=== PATIENT | male | born 1995 | race Caucasian/White ===

== ENCOUNTER 2019-09-15 21:41 | Observation (INO) | payer OTHER, SELFPAY ==
[2019-09-15 21:41] VITALS: BP 145/75; PULSE 58; RESP 18; TEMP 36.6; O2SAT 98; BMI 26.6
--- NOTE | 2019-09-15 22:18 | CT_ITS ---
We are attempting to reach an attending provider to discuss findings. An addendum with communication details will be sent when the communication is complete. STUDY: CT ABDOMEN AND PELVIS WITH CONTRAST REASON FOR EXAM: Male, 23 years old. RLQ PAIN/EMESIS RADIATION DOSAGE (If Supplied By Facility): CTDIvol = ( 17.85 ) mGy, DLP = ( 1007.00 ) mGycm TECHNIQUE: Transaxial images were obtained from the dome of the diaphragm to the symphysis pubis without oral contrast. Oral and amp; IV Gastrografin and amp; 100mL Isovue-370 was administered. Sagittal and coronal images were reconstructed. Individualized dose optimization techniques were used for this CT. COMPARISON: None. FINDINGS: The visualized lung bases are unremarkable. The visualized portions of the heart are within normal limits. Normal liver. Normal gallbladder and extrahepatic biliary system. Normal spleen. Normal pancreas. Normal bilateral adrenal glands. Normal right kidney. Normal left kidney. Normal visualized stomach. Normal small intestine. Normal colon. There is a tubular, thick-walled appendix (>7mm), consistent with acute appendicitis. Normal abdominal aorta. Normal inferior vena cava. Normal retroperitoneum. Normal urinary bladder. Normal abdominal wall. Normal osseous structures. CT/Abdomen/Pelvis WITH Contrast IMPRESSION: There is a tubular, thick-walled appendix (>7mm), consistent with acute appendicitis. Electronically Signed: Natasha Sharma, at 0:11 EDT Tel , Service support ,
[2019-09-15] MEDS: Ondansetron 4 MG/2 ML Vial IV (22:25)
[2019-09-15 22:26] LABS: Absolute Lymphocyte Count 1.82 X10^3/uL (0.83-4.51); Absolute Neutrophil Count 10.6 X10^3/uL (2.0-7.7); Basophil# 0.06 X10^3/uL; Basophil% 0.4 % (0-1); Eosinophil# 0.47 X10^3/uL; Eosinophils% 3.4 % (0-5); Hematocrit 40.7 % (40-54); Hemoglobin 13.4 g/dL (13.0-16.5); Lymphocyte # 1.82 X10^3/ul (4.0); Lymphocyte % 13.2 % (19-41); Mean Corp Hgb Conc 32.9 g/dL (32-36); Mean Corpuscular Hgb 29.2 pg (27.0-32.0); Mean Corpuscular Volume 88.7 fL (80-94); Mean Platelet Vol. 9.5 fl (6.2-12.0); Monocyte# 0.89 X10^3/uL; Monocyte% 6.4 % (0-10); NRBC Flagged by Analyzer 0 % (0-5); Neutrophil # 10.56 X10^3/uL (2.7-7.7); Neutrophil % 76.3 % (47-70); Platelet Count 193 K/mm3 (150-450); RBC Distribution Width CV 12.2 % (11.6-14.6); RBC Distribution Width SD 39.5 fl (35.1-43.9); Red Blood Count 4.59 M/mm3 (4.6-6.2); White Blood Count 13.8 K/mm3 (4.4-11.0)
[2019-09-15] MEDS: 0.9% Normal Saline 1,000 ML 1000 ML IV (22:26)
[2019-09-15] MEDS: Morphine 4 MG/ML Syringe IV (22:26)
[2019-09-15 22:39] LABS: ALB/GLOB Ratio 1.2 RATIO (0.9-2.4); AST(SGOT) 27 U/L (15-37); Alanine Aminotransfer ALT/SGPT 27 U/L (16-61); Albumin, Serum 3.6 g/dL (3.2-5.0); Alkaline Phosphatase 88 U/L (45-117); Anion Gap 5 (5-15); BUN 19 mg/dL (7-18); BUN/Creat Ratio 18.8 RATIO (10-20); Calcium,Total 8.8 mg/dL (8.5-10.1); Chloride 107 mmol/L (98-107); Creatinine, Serum 1.01 mg/dL (0.70-1.30); EST Glomerular Filtration Rate 97 mL/min (>60); Est Glom Filt Rate - Afr Amer 117 mL/min (>60); Estimated Creatinine Clearance 121.15 ml/min; Glucose 100 mg/dL (74-106); Lipase 71 U/L (73-393); Potassium 3.8 mmol/L (3.5-5.1); Protein, Total 6.6 g/dL (6.4-8.2); Sodium Level 140 mmol/L (136-145)
[2019-09-15 23:06] LABS: Bacteria 0 SEEN /hpf (None Seen); Mucous, Urine 0 SEEN /hpf (<or=2+); Red Blood Cells-Urine 0 SEEN /hpf (0-5); White Blood Cells 0 SEEN /hpf (0-5)
[2019-09-15 23:07] LABS: Color, Urine Yellow (Yellow); Glucose, Dipstick Normal (Normal); Ketone-Dipstick Negative (Negative); Leukocyte Esterase-Dipstick Negative /ul (Negative); Nitrite-Dipstick Negative (Negative); Occult Blood-Urine Negative /ul (Negative); Protein-Dipstick Negative (Negative); Urine Bilirubin Dipstick Negative (Negative); Urine Clarity Clear (Clear); Urine Urobilinogen Normal (Normal)
[2019-09-15 23:14] LABS: Squamous Epithelial Cells - UA 0-5 SEEN /hpf (0-5)
--- NOTE | 2019-09-15 23:15 | ED.DCSUM_ITS ---
- ER Visit Summary Date of Service: 09/15/19 Chief Complaint: Abdominal pain History of Present Illness: The patient is a 23 M with no primary care physician. He reports that he has right lower abdominal pain that began abruptly this evening at 6 PM shortly after eating [employer]. Describes it as a sharp, cramping pain is 910 worsening to 10 currently. Is worsened by movement or touching it. Is relieved by remaining still. He is been nauseated and vomited once. No blood in his emesis. Last bowel was today. No mild hematochezia. No dysuria, frequency, or hematuria. He denies any flank pain. Patient is never had anything like this before. He denies any history of fatty or spicy food intolerance. He denies fever or chills. He reports that he is feeling well today prior to this. Physical Examination: Vitals: Stable. Afebrile. General: Well-nourished and well-developed. Head: Normocephalic atraumatic. Neck: Supple, no lymphadenopathy. No JVD. Nontender. Cardiovascular: Regular rate and rhythm. No murmurs. Respiratory: No respiratory distress. Clear to auscultation bilaterally. Abdominal: Soft, moderate tenderness palpation the right lower quadrant, nondistended, normal bowel sounds. No guarding, rebound, or peritoneal signs. Back: Nontender. Extremities: Nontender, no edema. Skin: Normal color, no rash. Neurologic: Alert and oriented ?3. Cranial nerves II through XII are intact. Normal strength and sensation. Psych: Normal affect. Test Results: CBC shows a white count of 13.8 with 76 segment neutrophils and 13 lymphocytes. Chem-7 shows a BUN of 19. LFTs are normal. Lipase is 71. Urinalysis is negative. CT is pending. Emergency Department Course and Treatment: Patient was given a dose of morphine and Zofran IV. He is resting comfortably. Treatment Plan: Patient will be turned over to the oncoming physician for follow-up on the CT. Disposition: Pending Impression: 1. Abdominal pain, right lower quadrant. This note was generated with [employer] dictation software. It may contain incorrect words, spelling, and punctuation that were not noted in review of the chart prior to signing ED Disposition - Plan for ED Patient: Referrals: Mu Elliott MD [Primary Care Provider] -
[2019-09-15 23:46] VITALS: BP 132/72; PULSE 60; RESP 16; O2SAT 99
--- NOTE | 2019-09-15 23:55 | ED.DEP ---
ED Disposition - Plan for ED Patient: Disposition: Home or Assisted Living Instructions: ED Unknown Causes of Abdominal Pain Male Referrals: Mu Elliott MD [Primary Care Provider] - 3-5 Days if not improving
[2019-09-16] VITALS (10 sets, daily range): BP systolic 115–149; BP diastolic 58–81; PULSE 52–101; RESP 6–18; TEMP 36.8–37.6; O2SAT 0–99; BMI 27.2
--- NOTE | 2019-09-16 | APP_PTH ---
PATIENT: JIMMIE CAMARENA LOC: [facility] U#:[id number] AGE/SX: 23/M ROOM: [facility] RE09/16/[address]: Dr. Ada Trejo MD : 1995 BED: 1 DIS: 09/16/2019 SPEC #: [id number] RECD: 09/16/19 12:05 STATUS: KELLY REQ #: [id number] HANNY: 09/16/19 00:[address]: Ada Trejo DEPT: SURGICAL PATHOLOGY RECD BY: Bhavik Gardner ENTERED: 09/16/19 12:05 SP TYPE: APPENDIX OTHR DR: Dr. Mu Elliott MD Tissues: Appendix, NOS Procedures: Surgery Specimen Level III HEADER OPERATION: Laparoscopic appendectomy PRE-OP DIAGNOSIS: Appendicitis TISSUE SUBMITTED: Appendix MICROSCOPIC DIAGNOSIS Appendix, appendectomy: Acute necrotizing appendicitis. Acute serositis. AM:alexandra 09/17/19 MICROSCOPIC DESCRIPTION Slides are reviewed. GROSS DESCRIPTION Received is one container labeled with the patient's name and designated appendix. The specimen consists of an appendix measuring 12 cm in length and 0.8 cm in average diameter. The appendix is disrupted in its mid portion. The serosa is congested. No obvious perforation is identified. The lumen is filled with fecal material. No fecalith is identified. Theatre Director sections are submitted in one cassette. / AM:alexandra 09/16/19 TC:2 CPT: 08105
[2019-09-16] MEDS: morphine 8 MG/ML Syringe 6 MG IV (00:23)
[2019-09-16] MEDS: Lactated Ringers 1,000 ML 100 ML IV ×2 (02:00→07:00)
[2019-09-16] MEDS: Morphine 4 MG/ML Syringe IV ×2 (04:33→06:34)
--- NOTE | 2019-09-16 05:55 | PCM.HP.BLA ---
History and Physical Date of Admission: 09/16/19 Chief Complaint: abdominal pain History of Present Illness: 23 y/o otherwise healthy WM presents with sudden onset of right lower quadrant abdominal pain. This began at around 6 pm last evening. Describes pain as sharp and with crampy abdominal pain that was 9 out of 10 on a scale of 1-10 with 10 being the worst pain. He states that it is worsened by movement and somewhat tolerable if patient lies still. Also has nausea and had episode of emesis. He presented to [facility] ED. He was found to have an elevated WBC of 13.8K with left shift of differential. CT scan - There is a tubular, thick-walled appendix (>7mm), consistent with acute appendicitis. Patient admitted to [facility] in anticipation of surgery for appendicitis. Past Medical History: denies major medical illnesses Past Surgical History: adenoidectomy Medications: viibryd zyrtec Allergies: sulfa drugs Social history: TOB use denies ETOH occasional Occasional marijuana use Review of Systems: General - denies fevers Cardiovascular denies chest pain, denies history of heart attack, denies heart problems Pulmonary denies shortness of breath, denies coughing up blood Gastrointestinal as per HPI, denies blood in stools Neurological denies numbness/weakness of extremities, denies seizures, denies history of stroke Genitourinary denies burning with urination, denies blood in urine Hematological denies spontaneous/prolonged bleeding Skin denies open non healing wounds Musculoskeletal denies history of fractures Endocrine denies diabetes or thyroid problems Psychological denies hallucinations Physical examination: Vital signs Temp 98.2F HR 55 RR 16 BP 140/67 General WD/WN WM in no apparent distress, alert and oriented, not septic appearing HEENT Normocephalic. EOM intact with sclera clear and no icterus noted. Neck is supple with no jugular venous distention noted. Trachea is midline. Lungs no labored breathing noted, such as retractions. no adventitial lungs sounds. No cough heard. Heart regular rate Abdomen soft but tender in right lower quadrant with rebound, hypoactive bowel sounds. Extremities no calf tenderness noted. No pitting edema noted. Genitourinary/Rectal deferred Skin normal skin integrity. Neurological non focal. Psychological normal affect, patient is calm and appropriate Impression: right lower quadrant abdominal pain leukocytosis appendicitis by CT scan Discussion/Plan: I have discussed the above with the patient. I have offered the patient the procedure of laparoscopic appendectomy. I have explained the procedure to the patient. I have counseled the patient as to the risks of the procedure, including but not limited to: infection, bleeding, injury to any blood vessels/nerves, scar tissue, injury to any intrabdominal organs, injury to kidney/ureters, injury to bowel/bladder, intraabdominal abscess/bleeding, hernias at incisional sites, wound infections, possible open procedure, complications of anesthesia, postoperative pneumonia/cardiac problems/blood clots etc. the patient understands. I have also discussed with patient that he has increased risk of erick COVID or having complications of COVID due to surgical physiological stress, etc He understands all of above and is willing to proceed with surgery. I have answered all questions to the patient?s satisfaction and the patient has no further questions.
--- NOTE | 2019-09-16 06:40 | PCM.DC.APPY ---
Discharge Diet: No Restrictions - avoid carbonated beverages for a couple of days, drink plenty of fluids Discharge Activity: Return to Normal Activity, May not drive while taking narcotic pain medications. Lifting Restrictions: no lifting greater than 20 pounds for two weeks Additional Activity Instructions:: walking is encouraged Call your doctor if your incision/area has: Continuous Slow Oozing, Foul Smelling Discharge Call your doctor if you observe: Fever of 101 or Higher Additional Dressing/Incision Instructions:: Leave dressings in place. May get wet in shower. Do not soak - no tub baths/swimming Instructions: ED Unknown Causes of Abdominal Pain Male Medications to take at Discharge Cetirizine HCl [Zyrtec] 10 mg PO DAILY 09/15/19 Vilazodone Hydrochloride [Viibryd] 20 mg pe PO DAILY 09/15/19 Hydrocodone Bitart/Apap 5-325 [Vicodin 5/325] 1 tablet PO Q8H PRN PRN 4 Days #12 tablet 09/16/19 Allergies/Adverse Reactions: Allergies sulfamethoxazole [From Septra] Allergy (Verified 09/15/19 21:45) Nausea trimethoprim [From Septra] Allergy (Verified 09/15/19 21:45) Nausea The following prescriptions were given: Hydrocodone Bitart/Apap 5-325 [Vicodin 5/325] 1 tablet PO Q8H PRN PRN 4 Days #12 tablet PRN Reason: Pain Score 6-10/10 Transmission Status: Received by [facility] [facility] Primary Care Physician: Mu Elliott MD [Primary Care Provider] - 3-5 Days if not improving Test Results: Test results from this visit will be discussed in further detail at your follow-up appointment, if applicable. Please Follow Up With: Ada Trejo MD - When: a virtual visit will be set up for you in 10-14 days, call if any problems
--- NOTE | 2019-09-16 06:42 | PCM.OPRPT ---
Report of Operation Date of Procedure: 09/16/19 Pre-Operative Diagnosis: acute appendicitis Post-Operative Diagnosis: same Surgery/Procedure Performed:: laparoscopic appendectomy Description of Surgical Findings:: acute appendicitis - edematous, enlarged with fibrinous exudate, minimal cloudy fluid in pelvis, no perforation of appendix noted patrol inspector: Chelita Hernandez Type of Anesthesia:: General Anesthesiologist: Jey Man Specimen's removed: appendix Estimated Blood Loss (mL): 100 Fluids Replaced: 500 ml RL Description of Procedure: After informed consent was obtained, the patient was brought into the Operating Room. Appropriate time out protocol was followed. He was then placed in the supine position on the operating table. The patient was then placed under general anesthesia. The patient?s abdomen was then prepped with a sterile surgical skin preparation and sterile surgical drapes were placed. The infraumbilical skin fold was grasped with penetrating clamps and the skin and subcutaneous tissues were infiltrated with 0.25% marcaine with epinephrine. A transverse skin incision was then made. A Veress needle was then inserted into the intraabdominal cavity and checked to be in the proper position with a normal saline drop test. A CO2 pneumoperitoneum was then created. Once this was achieved, the Veress needle was removed and a 5 mm trocar was placed in its stead. A 5 mm laparoscope was then inserted into the trocar. Careful examination of the intraabdominal contents was then done. There was no evidence of injury to any internal organs from placement of the Veress needle or the trocar. Under direct visualization, a 12mm suprapubic trocar and a 5mm left lower quadrant trocar was then placed into the intraabdominal cavity. The skin and subcutaneous tissues at these sites were first infiltrated with 0.25% marcaine with epinephrine. Attention was then directed to the right lower quadrant. The appendix was visualized. It was grossly enlarged with a large amount of inflammatory changes and fibrinous exudate. No evidence of perforation was noted. The mesentery of the appendix was taken down by cauterizing the tissue from the free edge to the base of the appendix with the Kleppinger device. There was mesenteric bleeding that was controlled with hemolock clips. Once the base of the appendix was freed of surrounding tissues, then the linear gastrointestinal stapling device was brought into the abdominal cavity via the 12mm port and placed across the base of the appendix. The stapling device was fired, thus stapling across the base of the appendix and transecting it simultaneously. The appendix was then placed in an Endobag and this was brought out through the suprapubic trocar. The appendix was then forwarded to Pathology for analysis. The appendiceal stump was carefully examined. There was no evidence of any active bleeding or fecal leakage. The area was vigorously irrigated with normal saline. There was a small amount of cloudy fluid in the pelvis, this was irrigated with normal saline and all irrigant aspirated out. The surrounding tissues were also examined and there was no evidence of any active bleeding or fecal/bile leakage. The intraabdominal cavity was examined and there was no evidence of further inflammation or tissue abnormality. The areas of dissection were once again examinaed and there was no evidence of active bleeding or bile/fecal leakage. The CO2 pneumoperitoneum was released and all trocars were removed intact. The suprapubic fascia was reapproximated with a figure-of-8 vicryl suture. All skin incisions were reapproximated with monocryl suture. Cavilon and steristrips were applied to reinforce skin closure and proper sterile dressings were placed. The patient was then extubated and brought to the Recovery Room in stable condition. - Complications none noted - Admit VTE Documentation VTE Present on Admission: Yes VTE Mechan Device Prophylaxis: SCD's
[2019-09-16] MEDS: Bupiv/Epi 0.25% 30 ML Vial (08:00)
[2019-09-16 08:14] LABS: Probe Check PASS; Specimen Processing Control PASS
== END 2019-09-16 12:25 | disposition home or self-care (01) ==
LOC: ED 23:55 → MS3 09-16 00:46
PROVIDERS: Admitting Provider Surgery; Emergency Provider Emergency Medicine; PCP Pediatrics; Visit Provider Surgery
PROC: 0DTJ4ZZ Resection of Appendix, Percutaneous Endoscopic Approach (ICD-10-PCS; CPT 44970; principal; 2019-09-16 06:25)
DX: K35.80 Unspecified acute appendicitis (principal); F32.9 Major depressive disorder, single episode, unspecified; Z79.899 Other long term (current) drug therapy
CPT/HCPCS: 00840; 44970; 74177; 80053; 81001; 83690; 85025; 87635; 88304; 96361; 96365; 96375; 96376; 99218; 99283; G2023; J7030; J7120; Q9967; A4216; G0378; J2405; U0003